=== PATIENT | female | born 1980 | race Caucasian/White ===

== ENCOUNTER 2019-02-11 11:03 | Emergency (ER) | payer OTHER ==
[~2019-02-11] VITALS: Ht 170.2 cm; Wt 104.3 kg
[2019-02-11] MEDS ORDERED: ACID REDUCER20 M1 PO (11:18)
[2019-02-11] MEDS ORDERED: DOXYCYCLINE MO100 M1 PO (11:57)
[2019-02-11] MEDS ORDERED: NORCO 5-325 TA1 EAC1 PO (11:57)
[2019-02-11 12:18] VITALS: BP 158/95
== END 2019-02-11 12:20 | disposition home or self-care (01) ==
LOC: M.ERS 11:03
DX: L02.215 Cutaneous abscess of perineum (principal)